=== PATIENT | male | born 1965 | race Caucasian/White ===

== ENCOUNTER 2017-09-01 13:24 | Emergency (ER) | payer BC, OTHER ==
[~2017-09-01] VITALS: Ht 160 cm; Wt 81.6 kg
[~2017-09-01 13:24] MED LIST: IBUP200C6 PO
[2017-09-01] MEDS ORDERED: KETOROLAC 60 MG/2 ML VIAL. IM ONE (14:00)
[2017-09-01 14:29] LABS: BACTERIA,URINE 0 /HPF (0-FEW); BILIRUBIN,URINE NEG (NEG); CLARITY,URINE CLEAR; COLOR,URINE STRAW; GLUCOSE,URINE NEG (NEG); NITRITE,URINE NEG (NEG); RBC,URINE 0 /HPF (0-2); UROBILINOGEN,URINE 0.2 mg/dL (0.2 mg/dL); WBC,URINE 0 /HPF (0-4)
--- NOTE | 2017-09-01 15:04 | PHYS DOC ---
Past History Past Medical History: No Pertinent History Past Surgical History: Other Smoking: Cigarettes Alcohol Use: None Drug Use: None Adult General Chief Complaint Chief Complaint: TESTICULAR PAIN OR INJURY HPI HPI 30-year-old male patient with history of right testicular torsion and orchidectomy at age of 12 complaining of left testicular pain before he did go to bed last night as a constant pain without urinary frequency or penile discharge or history of injury. Patient rated his pain 9/10. Review of Systems Review of Systems Constitutional: Denies fever or chills [] Eyes: Denies change in visual acuity, redness, or eye pain [] HENT: Denies nasal congestion or sore throat [] Respiratory: Denies cough or shortness of breath [] Cardiovascular: No additional information not addressed in HPI [] GI: Denies abdominal pain, nausea, vomiting, bloody stools or diarrhea [] : Denies dysuria or hematuria , reports testicular pain[] Musculoskeletal: Denies back pain or joint pain [] Integument: Denies rash or skin lesions [] Neurologic: Denies headache, focal weakness or sensory changes [] Endocrine: Denies polyuria or polydipsia [] All other systems were reviewed and found to be within normal limits, except as documented in this note. Current Medications Current Medications Current Medications Medications (Trade) Dose Ordered Sig/[facility] Start Time Stop Time Status Last Admin Dose Admin Ketorolac Tromethamine (Toradol) 60 mg 1X ONCE 09/01/17 14:00 09/01/17 14:01 DC 09/01/17 14:24 60 MG Allergies Allergies Allergies Coded Allergies Type Severity Reaction Last Updated Verified acetaminophen Allergy Hives 05/06/13 Yes Physical Exam Physical Exam , bilateral external ears normal, oropharynx moist, no oral exudates, nose normal. [] Eyes: PERRLA, EOMI, conjunctiva normal, no discharge. [] Neck: Normal range of motion, no tenderness, supple, no stridor. [] Cardiovascular:Heart rate regular rhythm, no murmur [] Lungs & Thorax: Bilateral breath sounds clear to auscultation [] Abdomen: Bowel sounds normal, soft, no tenderness, no masses, no pulsatile masses. 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 [] Back: No tenderness, no CVA tenderness. [] Extremities: No tenderness, no cyanosis, no clubbing, ROM intact, no edema. [] Neurologic: Alert and oriented X 3, normal motor function, normal sensory function, no focal deficits noted. [] Psychologic: Affect normal, judgement normal, mood normal. [] Current Patient Data Vital Signs Vital Signs Date Time Temp Pulse Resp B/P (MAP) Pulse Ox O2 Delivery O2 Flow Rate FiO2 09/01/17 14:40 100 18 129/63 (85) 98 Room Air 09/01/17 14:28 98.1 Lab Results Laboratory Tests Test 09/01/17 14:08 Urine Collection Type Unknown Urine Color Straw Urine Clarity Clear Urine pH 6.0 Urine Specific [place] <=1.005 Urine Protein Neg (NEG-TRACE) Urine Glucose (UA) Neg mg/dL (NEG) Urine Ketones (Stick) Neg mg/dL (NEG) Urine Blood Neg (NEG) Urine Nitrite Neg (NEG) Urine Bilirubin Neg (NEG) Urine Urobilinogen Dipstick 0.2 mg/dL (0.2 mg/dL) Urine Leukocyte Esterase Neg (NEG) Urine RBC 0 /HPF (0-2) Urine WBC 0 /HPF (0-4) Urine Squamous Epithelial Cells None /LPF Urine Bacteria 0 /HPF (0-FEW) EKG EKG [] Radiology/Procedures Radiology/Procedures [] Course & Med Decision Making Course & Med Decision Making Pertinent Labs and Imaging studies reviewed. (See chart for details) Evaluation of patient in ER showed 51-year-old male patient with complaining of pain in the testicle since last night and history of right orchidectomy because of torsion at age of 12. Patient had erythema of the scrotum with unremarkable ultrasound of testicle and felt better with treatment in ER. Plan discharge patient home with diagnoses of orchitis. discharge: I've spoken with the patient and/or caregivers. I've explained the patient's condition, diagnosis and treatment plan based on information available to me at this time. I've answered the patient's and/or caregivers questions and addressed any concerns. The patient and/or caregivers have a good understanding the patient's diagnosis, condition and treatment plan as can be expected at this point. Vital signs have been stabilized. The patient's condition is stable for discharge from the emergency department. The patient will pursue further outpatient evaluation with her primary care provider or other designated consulting physician as outlined in the discharge instructions. Patient and/or caregivers are agreeable to this plan of care and follow-up instructions have been explained in detail. The patient and/or caregivers have received these instructions in written format and expressed understanding of these discharge instructions. The patient and her caregivers are aware that if any significant change in condition or worsening of symptoms should prompt him to immediately return to this of the closest emergency department. If an emergent department is not readily available I would encourage him to call 911. [] Dragon Disclaimer Dragon Disclaimer This electronic medical record was generated, in whole or in part, using a voice recognition dictation system. Departure Departure: Impression: Primary Impression: Orchitis Additional Impression: Epididymal cyst Disposition: HOME, SELF-CARE (At 1640) Condition: IMPROVED Referrals: [facility] (PCP) Patient Instructions: Orchitis Additional Instructions: Drink plenty of liquids Follow-up with your primary care physician in 3-5 days Return to ER if not getting better Scripts Ciprofloxacin Hcl (CIPRO) 250 Mg Tablet 1 TAB PO BID, #14 TAB Prov: LYNDSEY BLUNT MD 09/01/17 Hydrocodone Bit/Acetaminophen (NORCO 5-325 TABLET) 1 Each Tablet 1 TAB PO PRN Q6HRS Y for PAIN, #14 TAB 0 Refills Prov: LYNDSEY BLUNT MD 09/01/17 Ibuprofen (IBUPROFEN) 800 Mg Tablet 1 TAB PO TID, #30 TAB Prov: LYNDSEY BLUNT MD 09/01/17 Problem Qualifiers LYNDSEY BLUNT MD Sep 01, 2017 15:04
[2017-09-01] MEDS ORDERED: MORPHINE SULFATE 4 MG/ML DISP.SYRIN. IM ONE (15:15)
[2017-09-01 16:25] VITALS: BP 101/87
--- NOTE | 2017-09-01 16:26 | RAD ---
Scrotal ultrasound 09/01/2017 Clinical history: Left scrotal pain. Technique: Using a combination of real-time ultrasound imaging and color-flow and pulse Doppler imaging techniques, duplex evaluation of the scrotal sac and its contents was performed. Multiple images were obtained. Findings: Comparison study is dated 08/10/2006. The right testicle and epididymis are not visualized consistent with the patient's history of their surgical removal. The left testicle is within normal limits in size and echogenicity. It measures 4.8 x 2.9 x 1.9 cm in longitudinal, transverse, and AP dimensions. Normal color flow and pulse Doppler imaging to the left testicle is seen. A 4 mm cyst is seen involving the left epididymal head. There is a small left hydrocele. Impression: 1. Postsurgical removal of the right testicle and epididymis. 2. 4 mm cyst is seen within the left epididymal head. 3. Small left hydrocele. 4. Otherwise negative study.
[2017-09-01] MEDS ORDERED: HYDR-971 PO (16:38)
[2017-09-01] MEDS ORDERED: IBUP800T19 PO (16:38)
[2017-09-01] MEDS ORDERED: CIPR250T30 PO (16:38)
[2017-09-01] MEDS ORDERED: HYDROcodone/APAP 5/325MG 1 TAB TABLET PO ONE (16:45)
[2017-09-01] MEDS ORDERED: HYDROcodone/APAP 5/325MG 1 TAB TABLET ONE (16:46)
== END 2017-09-01 16:51 | disposition home or self-care (01) ==
LOC: ER 13:24
DX: N45.2 Orchitis (principal); N50.3 Cyst of epididymis; N43.3 Hydrocele, unspecified; F17.210 Nicotine dependence, cigarettes, uncomplicated; Z88.6 Allergy status to analgesic agent
CPT/HCPCS: 76870; 81001; 96372; 99285; J1885; J2270